=== PATIENT | female | born 1940 | race Two or more races ===

== ENCOUNTER 2020-03-15 06:45 | Day surgery (SDC) | payer OTHER ==
[~2020-03-15 06:45] MED LIST: CANDESAR PO; CRESTOR10 MG PO; FORTAMET1000 MG PO; HORIZANT300 MG PO; JANUVIA100 MG PO; SYSTANE; XALATAN; ZETIA10 MG PO; [UNRECOGNIZED DRUG - OTHER]
[2020-03-15] MEDS ORDERED: MACROBID 100 M100 MG PO (13:57)
[2020-03-15] MEDS ORDERED: ULTRACET PO (13:57)
== END 2020-03-15 18:25 | disposition home or self-care (01) ==
LOC: CIR.AMB 06:45
PROVIDERS: ATTEND Obstetrics & Gynecology Gynecology
DX: N81.3 Complete uterovaginal prolapse (principal); Z20.828 Contact with and (suspected) exposure to other viral communicable diseases